=== PATIENT | female | born 1990 | race Hispanic/Latino ===

== ENCOUNTER 2017-05-29 19:15 | Inpatient (IN) | payer OTHER ==
[2017-05-29 20:11] VITALS: BMI 23.6
[2017-05-29] MEDS: Misoprostol 200 MCG TAB PO SCH (21:45)
[2017-05-29] MEDS ORDERED: Misoprostol 200 MCG TAB ONE (21:47)
[2017-05-29 22:24] VITALS: TEMP 98.3
--- NOTE | 2017-05-30 01:22 | PDOC.LDPN ---
Labor & Delivery Progress Note - Subjective Subjective: comfortable - Objective Vital signs reviewed and normal: yes General: NAD, resting Uterine fundus: non tender - Assessment (1) Missed Code(s): O02.1 - MISSED Current Visit: Yes Status: Acute Comment : 27yo with IUFD Cytotec PO induction Patient currently trena with bloody show. Will continue Q4h checks and consider using more cytotec. Plan: continue plan of care
[2017-05-30 03:55] LABS: Hematocrit 45.7 % (36.0-47.0); Mean Platelet Volume 7.5 fL (7.4-10.4); Red Blood Cell (RBC) Count 4.89 mill/uL (4.20-5.40); White Blood Cell (WBC) Count 5.7 thou/uL (4.8-10.8)
--- NOTE | 2017-05-30 04:59 | PDOC.LDPN ---
Labor & Delivery Progress Note - Subjective Subjective: comfortable - Objective Vital signs reviewed and normal: yes General: NAD Dilation: 5cm Other exam findings: Bag is palpable - Assessment (1) Missed Code(s): O02.1 - MISSED Current Visit: Yes Status: Acute Comment : 27yo with IUFD Cytotec PO induction Patient currently trena with bloody show. Patient dilating. Patient resting comfortably. Will continue Q4h checks. Plan: continue plan of care
[2017-05-30] MEDS ORDERED: Lactated Ringer's 1,000 ML IV SCH (06:15)
--- NOTE | 2017-05-30 06:46 | PDOC.EVN ---
Event Note - Event Note Event Note: Notified of the patient delivering the non viable tissue at 06:30. Placenta did not deliver. Patient is hemodynamically stable and resting comfortably holding the nonviable fetus. Will await delivery of the placenta. Continue to monitor patient's condition going forward. <Dave Ma - Last Filed: 05/30/17 06:42> Attending Addendum - Attending Addendum I personally evaluated the patient and discussed the management with Dr. Ma. I agree with the History, Examination, Assessment and Plan documented above with any addition or exceptions noted below. Will give additional dose of cytotec. <Jonathan Ho - Last Filed: 05/30/17 07:47>
[2017-05-30] MEDS: Misoprostol 200 MCG TAB PO SCH (08:06)
[2017-05-30] MEDS ORDERED: FLU VACC QS2017-18 36 mo. & older 0.5 ML SYRINGE IM ONE (09:00)
[2017-05-30] MEDS ORDERED: Ibuprofen 800 MG TAB PO PRN (09:18)
--- NOTE | 2017-05-30 11:47 | PDOC.EVN ---
Event Note - Event Note Event Note: Attending Note Dr. Bee and I examined the patient, the lithotomy position. Sterile Speculum. Vaginal vault contained blood clot and placenta. This was evacuated gently with ringed forceps. Cervix visualized. Os open about 1 cm. Slow oozing of blood noted as expected. Placenta to path. Limited bedside ultrasound used to visualize uterus. Endometrium measured 2x3cm at widest point suggesting limited amount or POC/blood remaining. Tissue to path. Patient is feeling well, ambulating and voiding without difficulty. Patient to be discharged with rx for oral cytotec. Education about bleeding, fever, pain discussed. Patient will follow up on Thursday at [facility].
--- NOTE | 2017-05-30 22:52 | DN-2 ---
DELIVERING PHYSICIAN: Dave Ma MD ATTENDING PHYSICIAN: Jonathan Ho MD PROCEDURE: Spontaneous vaginal delivery. ANESTHESIA: None. ESTIMATED BLOOD LOSS: Minimal. PREOPERATIVE DIAGNOSIS: Missed . POSTOPERATIVE DIAGNOSIS: Completed . INDICATIONS: A 27-year-old female presents to L\T\D for induction due to intrauterine d emise. DELIVERY NOTE: This is a 27-year-old G4, P3-0-0-3 at 13 weeks 2 days who delivered a nonviable infa nt at 0630 hours on 05/30/2017. The patient had an initial ultrasound and had a followup visit at [facility] that was unable to find cardiac activity, had a second ultrasound that confirmed the absence of cardiac activity and the patient was scheduled for a Cytotec induction for the missed . The patient was given 1 dose of Cytotec prior to delivery of the material. The pa rickey then got another dose of Cytotec and delivered the placenta at 11:25 a.m. on 05/30/2017. The cervix and vagina were inspected and found to be free of lacerations. A limited bedside ultrasound was used to visualize the uterus, showed the endometrium measuring 2 x 3 cm as widest point suggesti ng a limited amount of blood, remaining. The tissue and the placenta were sent to pathology. The tigist luo tolerated delivery well and was discharged from the hospital with oral Cytotec with close fol lowup scheduled for Thursday at the Clinic.
== END 2017-05-30 12:30 | disposition home or self-care (01) | DRG 779 ==
LOC: L&D 19:15
PROVIDERS: ADMIT Family Medicine; ATTEND Family Medicine
PROC: 3E0P7VZ Introduction of Hormone into Female Reproductive, Via Natural or Artificial Opening (ICD-10-PCS; principal; 2017-05-30)
DX: O02.1 Missed abortion (principal)
CPT/HCPCS: 76815; 85027; 86762; 86780; 86850; 86900; 86901; 87340; 87389; 88300; 88305

== ENCOUNTER 2018-02-17 17:40 | Day surgery (SDC) | payer OTHER ==
[2018-02-17 18:23] VITALS: BP 116/59; TEMP 98.6; BMI 25.8
== END 2018-02-17 20:00 | disposition home or self-care (01) ==
LOC: L&D/OP 17:40
PROVIDERS: ATTEND Obstetrics & Gynecology
DX: O36.8130 Decreased fetal movements, third trimester, not applicable or unspecified (principal); Z3A.31 31 weeks gestation of pregnancy; Z88.1 Allergy status to other antibiotic agents
CPT/HCPCS: 76815; 99282

== ENCOUNTER 2018-04-10 10:31 | Inpatient (IN) | payer OTHER ==
[2018-04-10 11:34] VITALS: BMI 27.8
[2018-04-10] MEDS ORDERED: Calcium Gluc 4.6 MEQ/10 ML (100 MG/ML) SLOW IVP PRN (11:59)
[2018-04-10] MEDS ORDERED: Ondansetron HCl/PF 4 MG/2 ML Vial IVP PRN (11:59)
[2018-04-10] MEDS ORDERED: Promethazine HCl 25 MG/ML VIAL IM PRN (11:59)
[2018-04-10] MEDS ORDERED: Magnesium Sulfate 20 GM/WATER 500 ML BAG IVPB SCH (12:00)
--- NOTE | 2018-04-10 12:04 | PDOC.FPROB ---
FMR OB H&P: HPI - History of Present Illness Chief Complaint: Headache History of Present Illness: 27 y/o at 38.5 wks by LMP and second trimester sono presents for evaluation of intractable RAMACHANDRAN that started yesterday, but worsened this AM associated w/ some LE swelling. No prior hx of elevated BP during this or prior pregnancies. GBS negative. Denies any vision changes, abdominal pain. Tried 1 gram of tylenol at home at 0800 this AM w/o any relief. Pt reports RAMACHANDRAN started yesterday and got a bit better after taking a nap and eating. However, became severe again upon waking this AM prompting her to come for evaluation. Primary Care Physician: Ketan FMR OB H&P: Current - Care : 5 Para: 3 Gestational age: 38.5 Due date: 04/19/18 Dating Criteria: 20 wk sono/LMP Course/Complications: none - OB Labs Blood type: A RH: positive Antibody Screen: negative HIV: negative RPR: negative HepBsAg: negative Rubella: immune Quad screen: negative Gonorrhea: negative Chlamydia: negative FMR OB H&P: History - Past Medical History PMH: None - OB History OB History: - Surgical History Sx History: None - Social History Social History: non-contributory - Family History Family History: non-contributory FMR OB H&P: Medications - Current Home Medications: Medication Instructions Recorded Confirmed Type Vit No.130/Iron/Folic PO DAILY 02/17/18 History [ Tablet] Ferrous Sulfate [Iron] 325 mg PO DAILY 04/10/18 04/10/18 History Allergies/Adverse Reactions: Allergies Allergy/AdvReac Type Severity Reaction Status Date / Time vancomycin Allergy Hives Verified 04/10/18 11:27 FMR OB H&P: ROS - Review of Systems Eyes: denies: vision changes, scotomas Cardiovascular: reports: edema Gastrointestinal: denies: abdominal pain Genitourinary (Female): reports: contractions. denies: vaginal bleeding Musculoskeletal: denies: pain Neurologic: reports: headache FMR OB H&P: Vital Signs - Maternal Vital signs: BP: 162/92 - Heart Tones Baseline: 130 Variability: moderate Acceleration: present Deceleration: absent Category: category 1 [place] contractions every: q6 min FMR OB H&P: Physical Exam - Physical Exam General: NAD HEENT: normocephalic and atraumatic Heart: RRR, other (Trace edema LE b/l) General: CTAB, no wheezing Abdomen: soft, gravid, bowel sound present Neurological: cranial nerves II through XII intact Lymphatic: no purpura Psychiatric: intact recent and remote memory - Pelvic Exam Vulva: no discharge, no blood SVE: /-2 Membranes: intact Presentation: vertex FMR OB H&P: Results - Labs Lab results: pending FMR OB H&P: A/P - Problem List (1) Pre-eclampsia during in third trimester, antepartum Current Visit: Yes Status: Acute Code(s): O14.93 - UNSPECIFIED PRE-ECLAMPSIA , THIRD TRIMESTER Assessment and Plan: Pre-eclampsia labs (CBC/CMP/Uric acid/Urine protein/urine cr) pending at time of note Pt w/ multiple severe range BP's and intractable RAMACHANDRAN concerning for Pre-E w/ severe features Will go ahead and admit to L&D and start on Magesium w/ Strict I/O's and will monitor BP's PRN labetolol available for pressures >160/110 Also w/ ctx q6 minutes on toco and mild change in cervical check from thursday exam (2 cm) Will plan to place on magnesium for 24 hours or until pressures stabilize and plan for induction of labor Discussion: Date/Time: 04/10/18 1202 This H&P was discussed with [] and [] who agree with the above documentation and plan. Attending Addendum - Attending Addendum Date/Time: 04/10/18 1219 I personally evaluated the patient and discussed the management with Dr. Das I agree with the History, Examination, Assessment and Plan.
--- NOTE | 2018-04-10 12:23 | PDOC.EVN ---
Event Note - Event Note Event Note: 27 yo LAF now at 38 weeks presents c/o RAMACHANDRAN and UCs. Elevated BPs noted, 3 cm and vtx on admit. Fhts stable. UCs seen. Will proceed with MgSO4 prophylaxis and delivery.
[2018-04-10] MEDS: Magnesium Sulfate 20 gm/500 ml 20 GM/500 ML BAG IVPB SCH ×2 (12:36→21:05)
[2018-04-10 12:55] LABS: #Eosinphils 0.1 thou/uL (0.0-0.7); #Lymphocytes 1.5 thou/uL (1.20-3.40); #Monocytes 0.6 thou/uL (0.11-0.59); #Neutrophils 5.4 thou/uL (1.40-6.50); %Basophils 0.6 % (0.0-1.0); %Eosinophils 1.2 % (0.0-10.0); %Lymphocytes 19.2 % (21.0-51.0); %Monocytes 7.3 % (0.0-10.0); %Neutrophils 71.8 % (42.0-75.0); Hemoglobin 9.5 g/dL (12.0-16.0); Mean Corpuscular HGB CONC 33.8 g/dL (32.0-36.0); Mean Corpuscular Hemoglobin 27.3 pg (27.0-31.0); Mean Corpuscular Volume 80.7 fL (78.0-98.0); Mean Platelet Volume 7.9 fL (7.4-10.4); Platelet Count 224 thou/uL (130-400); RBC Distribution Width 15.9 % (11.5-14.5); Red Blood Cell (RBC) Count 3.46 mill/uL (4.20-5.40); White Blood Cell (WBC) Count 7.6 thou/uL (4.8-10.8)
[2018-04-10 13:08] LABS: ALT (SGPT) 39 U/L (8-55); AST (SGOT) 44 U/L (5-34); Albumin 3.1 g/dL (3.5-5.0); Alkaline Phosphatase 108 U/L (40-150); Anion Gap 11 mmol/L (10-20); BUN (Urea Nitrogen) 9 mg/dL (7.0-18.7); Bilirubin, Total 0.4 mg/dL (0.2-1.2); Calc. Creatinine Clearance 179 mL/min (70-130); Carbon Dioxide 19 mmol/L (22-29); Chloride 111 mmol/L (98-107); Estimated GFR-MDRD Greater than 90; Globulin 2.8 g/dL (2.4-3.5); Glucose 81 mg/dL (70-105); Potassium 3.8 mmol/L (3.5-5.1); Protein, Total 5.9 g/dL (6.0-8.3); Sodium 137 mmol/L (136-145); Uric Acid 5.6 mg/dL (2.6-6.0)
[2018-04-10 13:25] LABS: Syphilis Antibody Nonreactive (Nonreactive); Syphilis Antibody Index 0.05 S/CO (<1.00 Non-Reactive)
[2018-04-10] MEDS ORDERED: Lidocaine 1% (PF) 30 ML VIAL SC PRN (13:31)
[2018-04-10] MEDS ORDERED: NS / Oxytocin 40 units/1000ml 1,000 ML IV PRN (13:31)
[2018-04-10 13:36] LABS: HBSAg Index 0.23 S/CO (0-0.99); Hep B Surf Ag Non-Reactive S/CO (NonReactive)
[2018-04-10] MEDS ORDERED: NS w/ Oxytocin 10 units 500 ML IV SCH (13:45)
[2018-04-10] MEDS ORDERED: Labetalol HCl 100 MG/20 ML VIAL SLOW IVP PRN (14:28)
[2018-04-10] MEDS: Acetaminophen 500 MG TAB PO PRN ×2 (14:40→23:24)
[2018-04-10 14:42] LABS: Creatinine, Urine 41.94 mg/dL (47-110)
--- NOTE | 2018-04-10 14:57 | PDOC.LDPN ---
Labor & Delivery Progress Note - Subjective Subjective: comfortable, other (not feeling contractions, persitent headache) - Objective Vital signs reviewed and normal: yes General: NAD, breathing through contractions Uterine fundus: non tender Dilation: 3 Effacement: 75% Station: -2 FHT: category 1 [place] contractions every: 5-6 min - Assessment (1) Active labor at term Code(s): [id number] - Current Visit: Yes Status: Acute (2) Pre-eclampsia during in third trimester, antepartum Code(s): O14.93 - UNSPECIFIED PRE-ECLAMPSIA, THIRD TRIMESTER Current Visit: Yes Status: Acute Plan: continue plan of care, pitocin for augmentation -: # Active labor - still /-2 @ 1400 - just started pit at ~1300 - not feeling contractions - will titrate up on pitocin - not interested in epidural # Pre-eclampsia - persistent headache, not worsening - tyleonol + stadol - denies vision changes, sob, abd pain, or swelling - most bps 130s/80s, couple to 150s systolic - Uric acid 5.6, Pr/Cr 7.15, AST 44 - continue pitocin - PRN labetolol for pressure >160/110 # Mag check - RR 18 , DTRs intact, CTA-B <Abram Fernandez - Last Filed: 04/10/18 15:00> - Assessment (1) Pre-eclampsia during in third trimester, antepartum Code(s): O14.93 - UNSPECIFIED PRE-ECLAMPSIA, THIRD TRIMESTER Current Visit: Yes Status: Acute <Angus Walker - Last Filed: 04/10/18 15:27> Attending Addendum - Attending Addendum Date/Time: 04/10/18 1526 I personally evaluated the patient and discussed the management with Dr. De La Fuente. I agree with the Assessment and Plan documented above. <Angus Walker - Last Filed: 04/10/18 15:27>
[2018-04-10] MEDS ORDERED: Butorphanol Tartrate 1 MG/ML VIAL SLOW IVP PRN (15:02)
--- NOTE | 2018-04-10 15:47 | PDOC.EVN ---
Event Note - Event Note Event Note: Remains comfortable. Mg at 2 gms/hr. Pitocin at 8 mu/min. BP= 133/79. SVE 2-3/50/-1 VTX. AROM- small amt. of clear fluid. Continue present mgmt.
--- NOTE | 2018-04-10 17:04 | PDOC.FM ---
- Objective Vital Signs & Weight: Weight Weight 83.007 kg Result Diagrams: 04/10/18 12:41 04/10/18 12:41 Dx/Plan (1) Active labor at term Code(s): [id number] - Status: Acute (2) Pre-eclampsia during in third trimester, antepartum Code(s): O14.93 - UNSPECIFIED PRE-ECLAMPSIA, THIRD TRIMESTER Status: Acute
--- NOTE | 2018-04-10 17:05 | PDOC.LDPN ---
Labor & Delivery Progress Note - Subjective Subjective: comfortable, painful contractions - Objective Vital signs reviewed and normal: yes General: NAD, breathing through contractions Dilation: 3 Effacement: 50% Station: -1 FHT: category 1 - Assessment (1) Active labor at term Code(s): [id number] - Current Visit: Yes Status: Acute (2) Pre-eclampsia during in third trimester, antepartum Code(s): O14.93 - UNSPECIFIED PRE-ECLAMPSIA, THIRD TRIMESTER Current Visit: Yes Status: Acute -: # Active labor - still /-1 @ 1545 - started pit at ~1300, titrating up - starting to feel cxns - not interested in epidural # Pre-eclampsia - persistent headache, not worsening - tyleonol + stadol - denies vision changes, sob, abd pain, or swelling - most bps 130s/80s, couple to 150s systolic - Uric acid 5.6, Pr/Cr 7.15, AST 44 - continue pitocin - PRN labetolol for pressure >160/110 # Mag check - RR 18 , DTRs intact, CTA-B <Abram Fernandez - Last Filed: 04/10/18 17:05> - Assessment (1) Pre-eclampsia during in third trimester, antepartum Code(s): O14.93 - UNSPECIFIED PRE-ECLAMPSIA, THIRD TRIMESTER Current Visit: Yes Status: Acute <Angus Walker - Last Filed: 04/10/18 18:03> Attending Addendum - Attending Addendum Date/Time: 04/10/18 1803 I personally evaluated the patient and discussed the management with Dr. Fernandez. I agree with the Assessment and Plan. <Angus Walker - Last Filed: 04/10/18 18:03>
--- NOTE | 2018-04-10 18:44 | PDOC.LDPN ---
Labor & Delivery Progress Note - Subjective Subjective: comfortable - Objective Vital signs reviewed and normal: yes General: resting Uterine fundus: non tender Dilation: 1.5 FHT: category 1 (130/mod/+accel/no decel) [place] contractions every: 2-5 minutes Plan: continue plan of care -: 27 yo here for IOL 2/2 new-onset preE 1. Latent labor - /-1 @ 1545 - started pit at ~1300, titrating up - starting to feel cxns - does not desire in epidural - fentanyl or stadol unti l8 com 2. Pre-eclampsia - persistent headache, improved at this time - tyleonol + stadol - denies vision changes, sob, abd pain, or swelling - most bps 130s/80s, couple to 150s systolic - Uric acid 5.6, Pr/Cr 7.15, AST 44 - continue pitocin - PRN labetolol for pressure >160/110 3. Mag check - RR 18 , DTRs intact, CTA-B <Chiara Garza - Last Filed: 04/10/18 18:44> - Assessment (1) Pre-eclampsia during in third trimester, antepartum Code(s): O14.93 - UNSPECIFIED PRE-ECLAMPSIA, THIRD TRIMESTER Current Visit: Yes Status: Acute <Angus Walker - Last Filed: 04/10/18 19:19> Attending Addendum - Attending Addendum Date/Time: 04/10/181917 I personally evaluated the patient and discussed the management with Dr. Garza. I agree with the Assessment and Plan documented above. <Angus Walker - Last Filed: 04/10/18 19:19>
[2018-04-10] MEDS: Lactated Ringer's 1,000 ML IV SCH ×2 (21:00→21:54)
--- NOTE | 2018-04-10 21:34 | PDOC.EVN ---
Event Note - Event Note Event Note: Breathing with UCs. BPs are stable. SVE per Labor RN is 4/70/-1, vtx. FHTs stable. UCs are irregular q 1-3 mins. Pit at 10 mu/min. MgSO4 at 2 gms/hr. Will place IUPC to assess UCs and continue pitocin.
[2018-04-10] MEDS ORDERED: Fentanyl 100 MCG/2 ML VIAL SLOW IVP PRN (21:42)
--- NOTE | 2018-04-10 21:44 | PDOC.LDPN ---
Labor & Delivery Progress Note - Subjective Subjective: comfortable, painful contractions - Objective Vital signs reviewed and normal: yes General: breathing through contractions Uterine fundus: non tender Dilation: 4 Effacement: 50% (60) Station: -1 FHT: category 2 [place] contractions every: 2-3 -: 1. Latent labor - still /-1 @ 2130 - started pit at ~1300, titrating up - painful ctx, will give 25 fentanyl prn - not interested in epidural - Cat II due to episodic variables - Plan: patient making progression, continue to titrate pit to mVU goal of 200, control pain with fentanyl 2. Pre-eclampsia - denies RAMACHANDRAN, vision changes, chest pain, abd pain, swelling at this time - has received stadol - will add fentanyl 25 PRN - most bps 130s/80s, couple to 140s systolic - continue pitocin induction - PRN labetolol for pressure >160/110 3. Mag check - DTRs intact, CTAB, RR wnl, producing urine <Katarzyna Corley - Last Filed: 04/10/18 21:51> - Assessment (1) Pre-eclampsia during in third trimester, antepartum Code(s): O14.93 - UNSPECIFIED PRE-ECLAMPSIA, THIRD TRIMESTER Current Visit: Yes Status: Acute <Angus Walker - Last Filed: 04/10/18 22:18> Attending Addendum - Attending Addendum Date/Time: 04/10/18 1540 I personally evaluated the patient and discussed the management with Dr. Garza. I agree with the Examination, Assessment and Plan. <Angus Walker - Last Filed: 04/10/18 22:18>
--- NOTE | 2018-04-10 23:00 | PDOC.EVN ---
Event Note - Event Note Event Note: Rapid progress with of viable female infant by Dr. Garza. Placenta delivered intact Jessika. Intact perineum noted. To cont. MgS04 x 24 hours.
--- NOTE | 2018-04-10 23:12 | PDOC.OPDEL ---
OB Operative/Delivery Note Delivery Dr/Surgeon: Dr. Garza, Dr. Corley Assist: Attending: Dr. Walker Pre-Delivery Diagnosis: active labor Procedure/Post Delivery Dx: spontaneous vaginal delivery Weeks gestation: 38 (38.5) Anesthesia: none - Additional Findings/Plan Placenta delivered: spontaneous Repaired Obstetrical Laceration: none Estimated blood loss: 312 Compilations/Other Findings: This is 27yo F (now P4014) @ 38.5wks who delivered a viable F at 2247 on 04/10/2018. Antepartum course complicated by onset of preeclampsia at 38.5 weeks she delivered a vigorous F was delivered over an intact perineum in the occiputanterior position. Anterior shoulder and then remainder of the body delivered. Nuchal x1 which was delivered through. The head was held down and mouth and nares were bulb suctioned. Cord clamped and cut and cord blood collected. Placenta delivered intact Garnica presentation with a 3 vessel cord noted. Fundus was firm. The cervix and vagina were inspected and no lacerations were found. Infant went to nursery in good condition for routine care. Apgars were 9/9 at 1 & 5 minutes, respectively. Patient tolerated delivery well and went to after routine recovery/care. QBL 312cc. Post delivery plan: routine recovery (Continue Magnesium for 24 hours) <Katarzyna Corley - Last Filed: 04/10/18 23:46> Attending Addendum - Attending Addendum Date/Time: 04/11/18 0537 Present to assist Drs. Garza and Barney. I agree with the History, Examination, Assessment and Plan. <Angus Walker - Last Filed: 04/11/18 05:38>
[2018-04-10] MEDS ORDERED: Bisacodyl 10 MG SUPP PR PRN (23:25)
[2018-04-10] MEDS ORDERED: Lanolin Ointment 7 GM TUBE TOP PRN (23:25)
[2018-04-10] MEDS ORDERED: Benzocaine/Menthol 20-0.5% 60 ML CAN TOP PRN (23:25)
[2018-04-10] MEDS ORDERED: NS / Oxytocin 40 units/1000ml 1,000 ML IV SCH (23:30)
[2018-04-10] MEDS ORDERED: Adacel (T-DAP) 0.5 ML VIAL IM ONE (23:59)
--- NOTE | 2018-04-11 02:58 | PDOC.EVN ---
Event Note - Event Note Event Note: 27 now s/p at 2247 to MAGEN De Oliveira. No complaints. Denies RAMACHANDRAN, vision changes, chest pain, SOB, swelling. DTRs intact, lungs CTAB, UO >80/hr since delivery. Mg at 2gm, will continue to completion of 24 hour window. <Katarzyna Corley - Last Filed: 04/11/18 02:56> Attending Addendum - Attending Addendum Date/Time: 04/11/18532 I discussed the management with Dr. Corley. I agree with the Assessment and Plan. <Angus Walker - Last Filed: 04/11/18 05:34>
[2018-04-11 06:02] LABS: Hemoglobin 9.4 g/dL (12.0-16.0); Mean Corpuscular HGB CONC 34.5 g/dL (32.0-36.0); Mean Corpuscular Hemoglobin 27.8 pg (27.0-31.0); Mean Corpuscular Volume 80.5 fL (78.0-98.0); Platelet Count 223 thou/uL (130-400); Red Blood Cell (RBC) Count 3.37 mill/uL (4.20-5.40); White Blood Cell (WBC) Count 10.7 thou/uL (4.8-10.8)
[2018-04-11] MEDS: Magnesium Sulfate 20 gm/500 ml 20 GM/500 ML BAG IVPB SCH (07:13)
--- NOTE | 2018-04-11 10:58 | PDOC.PP ---
Post Progress Note Post Day #: 1 Subjective: Feeling well this morning but intermittently flushed and has a cramp in her R neck. She feels is going well and has no concerns about baby. PO intake tolerated: yes (tolerating clears) Flatus: yes Ambulation: no Vital Signs (12 hours) Temp Pulse Resp 04/11/18 08:00 98.2 F 88 20 04/11/18 05:10 98.2 F 88 20 04/10/18 23:25 98.2 F Weight Weight 83.007 kg - Physical Examination General: NAD Cardiovascular: no m/r/g, RRR Respiratory: clear to auscultation bilaterally Abdominal: + bowel sounds, lochia (minimal), no distention, appropriately TTP Fundus firm & at: umbilicus Extremities: negative homans (B) Neurological: no gross focal deficits (DTRs 1+ patellar BL) Psychiatric: A&Ox3, normal affect Result Diagrams: 04/11/18 05:48 04/10/18 12:41 Additional Labs: Post Labs Blood Type A POSITIVE 04/10/18 12:41 Hep Bs Antigen Non-Reactive S/CO (NonReactive) 04/10/18 12:42 - Assessment/Plan 27 yo s/p at 38.5 after IOL for new onset preE 1. PPD #1 - Tolerating clears, pain well controlled - Continue Mg as below until 24h hr PP (2300 tonight) 2. Pre-eclampsia - denies RAMACHANDRAN, vision changes, chest pain, abd pain, swelling at this time - BPs 130s-140s/80s - Continue Mg infusion until 24 hr pp - q1hr nursing Mg checks, q4 hr MD 3. Mg check - DTRs intact, CTAB, RR wnl, UOP approx 100/hr over last couple of hours
[2018-04-11] MEDS: Ibuprofen 800 MG TAB PO SCH ×3 (11:17→20:03)
--- NOTE | 2018-04-11 12:54 | PDOC.EVN ---
Event Note - Event Note Event Note: Received call regarding depressed reflexes and facial numbness in patient on Mg Evaluated patient at approximately 12:40 PM. She appears alert and oriented. No depression in respirations. Since last Mg check, BP's have been consistently in the low 130's/80's. At approximately 7:30 this AM, BP was in the 140/80's. Subjective: Patient states she is feeling ok. She denies any shortness of breath , chest pain, or edema. Patient denies fever or chills. Patient denies scotoma, headaches, or abdominal pain. PE: General: Alert and oriented x3. No acute distress. Afebrile. Card: RRR. No murmurs. No edema. Pulses intact Resp: No respiratory depression. Lungs clear to auscultation bilaterally. Neuro: DTR's 2+ UE's. DTR's 1+ in LE's bilaterally. : Adequate urine output. A/P: Mg level ordered. Does not appear to be due to toxicity. Mg level came back at 5.5. Opted to keep patient off of Mg as her BP's have been well controlled and she is asymptomatic. Recent studies to suggest that PP Mg not necessary for interval longer than 6-12 hours if adequately treated prior to delivery. Patient was on Mg for approximately 12 hours PP. Discussed with Hospitalist, Dr. Jones who agreed with plan. Keri Ramesh DO PGY-2
[2018-04-12] MEDS: Ibuprofen 800 MG TAB PO SCH ×2 (04:13→12:03)
[2018-04-12] MEDS: Prenatal Vitamin 1 TAB PO SCH ×2 (04:17→09:17)
[2018-04-12] MEDS: Docusate Calcium (SURFAK) 240 MG CAP PO SCH ×2 (04:17→09:17)
--- NOTE | 2018-04-12 07:00 | PDOC.PP ---
Post Progress Note Post Day #: 2 Subjective: No overnight events. Mg stopped yesterday at 1230. Pt is doing well this morning. She complains of neck pain on the right side that begins when she wakes up and goes away with ibuprofen. She states she is ambulating to the bathroom successfully. She is passing flatus but has not had a BM. She denies headache, fever, SOB, aura, floaters, flushing, facial numbness or chest pain. PO intake tolerated: yes Flatus: yes Ambulation: yes Vital Signs (12 hours) Temp Pulse Resp BP 04/12/18 04:00 98.4 F 67 18 135/75 04/12/18 00:00 98.3 F 68 18 04/11/18 23:25 98.3 F 68 18 122/79 04/11/18 20:00 98.2 F 88 20 Weight Weight 83.007 kg - Physical Examination General: NAD Cardiovascular: no m/r/g, RRR Respiratory: clear to auscultation bilaterally, non-labored breathing Abdominal: + bowel sounds, appropriately TTP Deviation from normal: DTR intact & 2+ Neurological: no gross focal deficits Deviation from normal: neck not TTP Psychiatric: A&Ox3, normal affect Result Diagrams: 04/11/18 05:48 04/10/18 12:41 Additional Labs: Post Labs Blood Type A POSITIVE 04/10/18 12:41 Hep Bs Antigen Non-Reactive S/CO (NonReactive) 04/10/18 12:42 - Assessment/Plan 27 yo PPD2, s/p at 38.5 after IOL for new onset preE PPD #2 - Tolerating diet, pain well controlled - Mg discontinued on 04/11 @ 1230; symptoms resolved - no facial numbness, DTR intact; BPs 120-130s/70s - pt is ambulating and passing flatus Pre-eclampsia, resolved - denies RAMACHANDRAN, vision changes, chest pain, abd pain, swelling at this time - BPs 120-30s/70s, DTRs intact DISPO: possible afternoon discharge today if pt continues to feel well <Maria Isabel Biggs - Last Filed: 04/12/18 07:04> Vital Signs (12 hours) Temp Pulse Resp BP 04/12/18 04:00 98.4 F 67 18 135/75 04/12/18 00:00 98.3 F 68 18 04/11/18 23:25 98.3 F 68 18 122/79 04/11/18 20:00 98.2 F 88 20 Weight Weight 183 lb Result Diagrams: 04/11/18 05:48 04/10/18 12:41 Additional Labs: Post Labs Blood Type A POSITIVE 04/10/18 12:41 Hep Bs Antigen Non-Reactive S/CO (NonReactive) 04/10/18 12:42 <Mirela Jones - Last Filed: 04/12/18 07:42> Attending Addendum - Attending Addendum Date/Time: 04/12/18 0741 I personally evaluated the patient and discussed the management with Dr. Fernandez. I agree with the History, Examination, Assessment and Plan documented above. PPD#2 and s/p MgSO4 for preeclampsia. Feeling well this am. BPs normal overnight. Continue to monitor with possible d/c this pm. <Mirela Jones - Last Filed: 04/12/18 07:42>
[2018-04-12 08:33] VITALS: BP 125/74; TEMP 98.1
== END 2018-04-12 13:15 | disposition home or self-care (01) | DRG 775 ==
LOC: L&D/OP 10:31 → ERS 10:31 → EDSTATUS 10:48 → L&D 12:10 → 3SW 04-11 19:51
PROVIDERS: ADMIT Obstetrics & Gynecology; ATTEND Obstetrics & Gynecology
PROC: 10E0XZZ Delivery of Products of Conception, External Approach (ICD-10-PCS; principal; 2018-04-10)
PROC: 10907ZC Drainage of Amniotic Fluid, Therapeutic from Products of Conception, Via Natural or Artificial Opening (ICD-10-PCS; 2018-04-10)
DX: O69.81X0 Labor and delivery complicated by cord around neck, without compression, not applicable or unspecified (principal); Z3A.38 38 weeks gestation of pregnancy; Z37.0 Single live birth; O14.94 Unspecified pre-eclampsia, complicating childbirth; O76 Abnormality in fetal heart rate and rhythm complicating labor and delivery
CPT/HCPCS: 36415; 80053; 81003; 82570; 83735; 84156; 84550; 85025; 85027; 86780; 86850; 86900; 86901; 87340; J0595; J2001; J3010; J3475

== ENCOUNTER 2018-12-22 21:19 | Inpatient (IN) | payer OTHER ==
[2018-12-22 21:48] LABS: #Basophils 0.1 thou/uL (0.0-0.2); #Eosinphils 0.2 thou/uL (0.0-0.7); #Lymphocytes 2.5 thou/uL (1.20-3.40); #Monocytes 0.6 thou/uL (0.11-0.59); #Neutrophils 3.5 thou/uL (1.40-6.50); %Lymphocytes 36.5 % (21.0-51.0); %Monocytes 8.1 % (0.0-10.0); %Neutrophils 51.4 % (42.0-75.0); Hemoglobin 12.3 g/dL (12.0-16.0); Mean Corpuscular HGB CONC 32.2 g/dL (32.0-36.0); Mean Corpuscular Hemoglobin 27.1 pg (27.0-31.0); Mean Corpuscular Volume 84.3 fL (78.0-98.0); Mean Platelet Volume 8.5 fL (7.4-10.4); Platelet Count 253 thou/uL (130-400); RBC Distribution Width 14.9 % (11.5-14.5); Red Blood Cell (RBC) Count 4.53 mill/uL (4.20-5.40); White Blood Cell (WBC) Count 6.9 thou/uL (4.8-10.8)
[2018-12-22 22:11] LABS: ALT (SGPT) 15 U/L (8-55); AST (SGOT) 27 U/L (5-34); Albumin 4.3 g/dL (3.5-5.0); Alcohol Less than 10 mg/dL (Less than 10); Alkaline Phosphatase 50 U/L (40-150); Anion Gap 16 mmol/L (10-20); BUN (Urea Nitrogen) 12 mg/dL (7.0-18.7); Bilirubin, Total 0.3 mg/dL (0.2-1.2); Calc. Creatinine Clearance 0 mL/min (70-130); Calcium 9.4 mg/dL (7.8-10.44); Carbon Dioxide 21 mmol/L (22-29); Chloride 109 mmol/L (98-107); Estimated GFR-MDRD Greater than 90; Globulin 3.6 g/dL (2.4-3.5); Glucose 115 mg/dL (70-105); Potassium 4.6 mmol/L (3.5-5.1); Protein, Total 7.9 g/dL (6.0-8.3); Salicylate Less than 8.0 mg/dL (15.0-30.0); Sodium 141 mmol/L (136-145)
[2018-12-23] MEDS ORDERED: DEXTROSE 5% IV SCH ×3 (00:15→06:00)
[2018-12-23] MEDS ORDERED: ACETYLCYSTEINE IV SCH ×3 (00:15→06:00)
[2018-12-23] MEDS ORDERED: WATER IV SCH ×3 (00:15→06:00)
--- NOTE | 2018-12-23 01:07 | PDOC.FPRHP ---
- History of Present Illness Chief Complaint: accidental tylenol overdose History of Present Illness: This is a 28yo F presenting to the ED for accidental tylenol overdose. The patient reports taking 16 500mg tylenol pills throughout the day due to headache. She states that she took 2 pills around 2100 on 12/21, another 2 around 0300 on 12/22, and another 2 around 0500 - she is unsure when she took the other 10 throughout the day. She took her last dose of 2 pills around 1800 on 12/22. She states that she does not have any symptoms such as chest pain, NVD , palpitations, abdominal pain. Her headache has resolved. She denies any suicidal ideation. She states the headache was temporal. She endorses feeling more fatigued and tired than usual. ED Course: started acetylcysteine, 1 L NS - Allergies/Adverse Reactions Allergies Allergy/AdvReac Type Severity Reaction Status Date / Time vancomycin Allergy Hives Verified 04/10/18 11:27 - Home Medications Medication Instructions Recorded Confirmed Type Ferrous Sulfate [Iron] 325 mg PO DAILY 04/10/18 04/10/18 History Ibuprofen [Motrin] 800 mg PO Q8HR tab 04/12/18 Rx - History PMHx: Hx of gestational DM, 4 PSHx: none FHx: non contributory Social: denies alcohol, tobacco, and drug use - Review of Systems General: reports: fatigue. denies: fever/chills, weight/appetite/sleep changes , night sweats Eyes: denies: vision changes ENT: denies: nasal congestion, rhinorrhea Respiratory: denies: cough, congestion, shortness of breath Cardiovascular: denies: chest pain, palpitation, edema Gastrointestinal: denies: nausea, vomiting, diarrhea, constipation, abdominal pain Genitourinary: denies: dysuria Skin: denies: rashes, lesions Musculoskeletal: denies: pain, tenderness, swelling Neurological: denies: weakness Psychological: denies: anxiety, depression - Vital signs BP: 121/86, HR: 115, RR: 18, O2: 100% on RA, T: 98.3F, Weight: 81.65kg - Physical Exam Constitutional: NAD, awake, alert and oriented, well developed HEENT: normocephalic and atraumatic, PERRLA, EOMI, grossly normal vision, grossly normal hearing, MMM Neck: supple, FROM, trachea midline Chest: no-tender to palpation, no lesions Heart: RRR, normal S1/S2, no murmurs/rubs/gallops Lungs: CTAB, no respiratory distress, good air movement, no wheezing, no retractions Abdomen: soft, non-tender, bowel sounds present, no masses/distention Musculoskeletal: normal structure, normal tone Neurological: no focal deficit Skin: no rash/lesions, good turgor, capillary refill <2 seconds Heme/Lymphatic: no unusual bruising or bleeding Psychiatric: normal mood and affect FMR H&P: Results - Labs Result Diagrams: 12/22/18 21:35 12/22/18 21:35 Lab results: WBC 6.9 thou/uL (4.8-10.8) 12/22/18 21:35 Hgb 12.3 g/dL (12.0-16.0) 12/22/18 21:35 Hct 38.2 % (36.0-47.0) 12/22/18 21:35 MCV 84.3 fL (78.0-98.0) 12/22/18 21:35 Plt Count 253 thou/uL (130-400) 12/22/18 21:35 Neutrophils % 51.4 % (42.0-75.0) 12/22/18 21:35 Sodium 141 mmol/L (136-145) 12/22/18 21:35 Potassium 4.6 mmol/L (3.5-5.1) 12/22/18 21:35 Chloride 109 mmol/L (98-107) H 12/22/18 21:35 Carbon Dioxide 21 mmol/L (22-29) L 12/22/18 21:35 BUN 12 mg/dL (7.0-18.7) 12/22/18 21:35 Creatinine 0.75 mg/dL (0.6-1.1) 12/22/18 21:35 Glucose 115 mg/dL (70-105) H 12/22/18 21:35 Calcium 9.4 mg/dL (7.8-10.44) 12/22/18 21:35 Total Bilirubin 0.3 mg/dL (0.2-1.2) 12/22/18 21:35 AST 27 U/L (5-34) 12/22/18 21:35 ALT 15 U/L (8-55) 12/22/18 21:35 Alkaline Phosphatase 50 U/L (40-150) 12/22/18 21:35 Serum Total Protein 7.9 g/dL (6.0-8.3) 12/22/18 21:35 Albumin 4.3 g/dL (3.5-5.0) 12/22/18 21:35 FMR H&P: A/P - Problem List (1) Unintentional Tylenol overdose Current Visit: Yes Status: Acute Code(s): T39.1X1A - POISONING BY 4- AMINOPHENOL DERIVATIVES, ACCIDENTAL, INIT - Plan Unintentional Tylenol Dose Patient w/ hx of taking 16 tablets of 50mg tylenol over a 24 hr period (double the recommended amount in a 24hr period). Patient with symptoms of fatigue currently. - Acetominophen level of 166 - Will continue acetylcysteine protocol - VSS - Will repeat LFTs and get INR in AM, will repeats LFTs, INR, and acetominophen at 2100 on 12/23 - Can consider GI consult if LFTs increase Tension Headache - NSAID, benadryl PRN for headache pain Dispo: admit to medical inpatient, >2midnights Code: FULL Case discussed with Dr. Tabor FMR H&P: Upper Level - Pertinent history 28 yo HF PMH pre-eclampsia. Presents after accidental APAP overdose that occurred throughout today. States she had a RAMACHANDRAN last night at 2100 at which time she took two 500 mg APAP tabs. She went to sleep and awoke at 0300 with her RAMACHANDRAN still present and took 2 more 500 mg APAP tabs. She awoke again at 0500 and took 2 more tabs. She states she the proceeded to take an additional 10 tabs of the APAP 500 mg with her last dose taken at 1800. She became concerned that she may have over dosed on APAP and came to the ER for evaluation. ER: labs, EKG, NAC started, NS 1L, Poison control contacted. - Pertinent findings Vitals: Pulse 102, otherwise WNL GEN: NAD, A&Ox3 CV: tachy regular, no murmur Pulm: CTA-B Abd: NTND Labs. APAP 166, LFTs WNL EKG: sinus tachycardia, otherwise WNL - Plan Date/Time: 12/23/18 0107 I, Yonis Tabor MD, have evaluated this patient and agree with findings/plan as outlined by recruitment internship resident. Pertinent changes/additions are listed here. 1. Acute acetaminophen overdose: Start NAC protocol. Will repeat LFTs and order initial INR in AM. Repeat LFTs, INR, and APAP level tomorrow at 2100 which is approximately 24 hrs after initiation of NAC therapy. If LFTs become elevated, will consult GI for further recommendations. Do not suspect SI at this time. 2. Tension headache: NSAIDs PRN for reoccurrence. Diet: Regular PPx: none CODE: FULL Dispo: inpatient, medical, >[address] Saucedo. Addendum - Attending - Attending Attestation Date/Time: 12/23/18 2478 I personally evaluated the patient and discussed the management with Dr. Biggs I agree with the History, Examination, Assessment and Plan documented above with any addition or exceptions noted below. 28 yo female with accidental acetaminophen OD Patient with RAMACHANDRAN Thursday pm and took total 8 grams of 500 mg tylenol q 2-3 hours within less than 24hour period. Patient c/o felt dizzy and realized may have taken excessive amount APAP and presented to ER with last dose APAP 1800 and tylenol level 166. Poison control notified and patient started on NAC protocol. Patient denied any self harm intent had tension type headache. PMHX [id number] nexplanon s/p MAY 2018 Allergy [facility] had pre-eclampsia Surgery none ROS seasonal AR FMHX NR Habit nonsmoker occa rare social ETOH Social Common law 4 children with significant other 8 years not single dose ingestion so rumac-mattew normogram less helpful rec start acetylcystiene IV per NAC protocol x 21 hours and f/u APAP level, LFTs,INR if no Mental status changes,no RUQ pain and APAP level o and nl LFTs can d/c mucomyst. No concern for self harm.
[2018-12-23] MEDS ORDERED: Ondansetron PF 4 MG/2 ML Vial IVP PRN (01:13)
[2018-12-23] MEDS ORDERED: Ondansetron ODT 4 MG TAB PO PRN (01:13)
[2018-12-23] MEDS ORDERED: diphenhydrAMINE 25 MG CAP PO PRN (01:15)
[2018-12-23] MEDS ORDERED: Ibuprofen 200 MG TAB PO PRN (01:16)
[2018-12-23] MEDS ORDERED: diphenhydrAMINE 50 MG/ML VIAL IVP PRN (02:36)
[2018-12-23 02:45] LABS: INR-International Normal Ratio 1.2; Prothrombin Time 15.4 SEC (12.0-14.7)
[2018-12-23 03:14] LABS: ALT (SGPT) 11 U/L (8-55); AST (SGOT) 16 U/L (5-34); Albumin 4.1 g/dL (3.5-5.0); Alkaline Phosphatase 41 U/L (40-150); Bilirubin, Direct 0.2 mg/dL (0.1-0.3); Bilirubin, Total 0.4 mg/dL (0.2-1.2); Protein, Total 7.2 g/dL (6.0-8.3)
[2018-12-23 04:38] VITALS: BMI 29.7
[2018-12-23 21:27] LABS: INR-International Normal Ratio 1.2; Prothrombin Time 14.9 SEC (12.0-14.7)
[2018-12-23 21:42] LABS: ALT (SGPT) 15 U/L (8-55); AST (SGOT) 16 U/L (5-34); Acetaminophen Less than 6.0 mcg/mL (10.0-30.0); Albumin 4.2 g/dL (3.5-5.0); Alkaline Phosphatase 49 U/L (40-150); Bilirubin, Direct 0.1 mg/dL (0.1-0.3); Bilirubin, Total 0.3 mg/dL (0.2-1.2); Protein, Total 7.5 g/dL (6.0-8.3)
--- NOTE | 2018-12-24 06:23 | PDOC.FM ---
- Subjective Subjective: Ms. Galindo feels well with no concerns, no events overnight. Ready to go home today. - Objective Vital Signs & Weight: Vital Signs (12 hours) Temp Pulse Resp BP Pulse Ox 12/24/18 04:00 98.5 F 94 16 105/57 L 96 12/23/18 19:35 98.5 F 78 16 112/73 97 Weight Weight 81 kg Result Diagrams: 12/22/18 21:35 12/22/18 21:35 Phys Exam - Physical Examination Constitutional: NAD Respiratory: no wheezing, clear to auscultation bilateral Cardiovascular: RRR, no significant murmur Gastrointestinal: soft, non-tender, positive bowel sounds Musculoskeletal: no edema Neurological: non-focal Psychiatric: normal affect Skin: normal turgor Dx/Plan (1) Unintentional Tylenol overdose Code(s): T39.1X1A - POISONING BY 4-AMINOPHENOL DERIVATIVES, ACCIDENTAL, INIT Status: Acute - Plan Plan: Unintentional Tylenol Dose Patient w/ hx of taking 16 tablets of 50mg tylenol over a 24 hr period (double the recommended amount in a 24hr period). Patient with symptoms of fatigue currently. - Acetominophen level of 166 initially - VSS - Repeat labs all normal and tylenol level downtrended Tension Headache, resolved - NSAID, benadryl PRN for headache pain Dispo: discharge this am Code: FULL Addendum - Attending - Attending Attestation Date/Time: 12/24/18 0749 I personally evaluated the patient and discussed the management with Dr. Bartlett I agree with the History, Examination, Assessment and Plan documented above with any addition or exceptions noted below.
[2018-12-24 07:28] VITALS: BP 107/71; TEMP 98.1
--- NOTE | 2018-12-27 10:23 | DIS ---
DATE OF ADMISSION: 12/23/2018 DATE OF DISCHARGE: 12/24/2018 RESIDENT: Charlee Bartlett DO ADMITTING ATTENDING: Jovita Baltazar MD DISCHARGE ATTENDING: Dr. Missael Saucedo. CONSULTS: None. PROCEDURES: None. PRIMARY DIAGNOSES: 1. Unintentional Tylenol overdose. 2. Tension headache. DISCHARGE MEDICATIONS: 1. Ferrous sulfate 325 mg p.o. daily. 2. Ibuprofen 800 mg p.o. q.8 hours p.r.n. HISTORY OF PRESENT ILLNESS: A 28-year-old female presented to the emergency department for accidental Tylenol overdose. She reported taking a total of 8 g of Tylenol throughout the day due to headache. Her headache had resolved at the time of admission. She denied any suicidal ideation. Her only symptom was fatigue. Initial acetaminophen level was 166. She was admitted and started on the acetylcysteine protocol. Poison Control was consulted and their recommendations were appreciated. Liver function tests and INR levels were trended. The patient did not have any mental status changes, right upper quadrant pain. There was no concern for any self-harm intention. Last labs prior to discharge included a Tylenol level of less than 6 and an INR that was unchanged of 1.2. All liver enzymes negative. The patient was discharged home without complication. DISPOSITION: Stable. DISCHARGE INSTRUCTIONS: 1. Location: Home. 2. Diet: Regular. 3. Activity: As tolerated. 4. Followup: Follow up with [facility] in 1 week. Job ID: [id number]
== END 2018-12-24 11:58 | disposition home or self-care (01) | DRG 918 ==
LOC: ERS 21:19 → T4-A 12-23 00:37
PROVIDERS: ADMIT Student in an Organized Health Care Education/Training Program; ATTEND Student in an Organized Health Care Education/Training Program
DX: T39.1X1A Poisoning by 4-Aminophenol derivatives, accidental (unintentional), initial encounter (principal); R53.83 Other fatigue; Z88.1 Allergy status to other antibiotic agents; X58.XXXA Exposure to other specified factors, initial encounter
CPT/HCPCS: 36415; 80053; 80076; 80307; 85025; 85610; 93005; 94760; 96361; 96365; J0132; J1200; J2405; J7070; Q0163